=== PATIENT | female | born 1975 | race Two or more races ===

== ENCOUNTER → 2018-01-30 | Outpatient (CLI) | END | disposition home or self-care (01) ==

== ENCOUNTER 2018-03-09 07:04 | Emergency (ER) | END 2018-03-09 08:22 | disposition home or self-care (01) ==

== ENCOUNTER 2018-10-12 16:36 | Emergency (ER) | END 2018-10-12 18:06 | disposition home or self-care (01) ==

== ENCOUNTER 2019-01-14 05:57 | Day surgery (SDC) | payer BC ==
[~2019-01-14] VITALS: Ht 157.5 cm; Wt 56.7 kg
[2019-01-14] VITALS (12 sets, daily range): BP systolic 99–153; BP diastolic 65–78; PULSE 58–82; RESP 14–25; Ht 157.5 cm; Wt 56.7 kg
[~2019-01-14 05:57] MED LIST: MINE3.5O30 RIGHT EYE; NAPR-985 PO
[2019-01-14] MEDS ORDERED: SOD CHLORIDE 0.9% 1,000 ML IV SCH (06:00)
[2019-01-14] MEDS ORDERED: CEFAZOLIN 2 GM/50 ML (PMX) 50 ML IVPB ONE (06:00)
[2019-01-14] MEDS ORDERED: BUPIVACAINE 0.5%/EPI (SDV) 30 ML INJ ONE (07:03)
--- NOTE | 2019-01-14 07:24 | PREAC ---
Date/Time of Note Date/Time of Note DATE: 01/14/19 TIME: 07:23 Anesthesia Eval and Record Evaluation Time Pre-Procedure Interview DATE: 01/14/19 TIME: 07:23 Age 44 Sex female NPO: 8 hrs Preoperative diagnosis Gallstones Planned procedure Lap Marsha Past Medical History Past Medical History: Includes Cardio: Dyslipidemia Surgery & Anesthesia Issues No known issue Meds Anticoagulation: No Beta Vickie within 24 hr: No Reason Beta Vickie not given: Pt. not on B-Vickie Discontinued Scripts Mineral Oil/Petrolatum,White (ARTIFICIAL TEARS EYE OINT) 3.5 Gm Oint...g., 1 APPLIC RIGHT EYE NEEDED PRN for DRY EYES for 10 Days, #1 EA Prov:GONSALO GRAHAM MD 10/12/18 Naproxen* (Naprosyn*) 500 Mg Tablet, 500 MG PO BID PRN for PAIN AND/OR INFLAMMATION, #30 TAB Prov:DAPHNE JORGENSEN PA-C 03/09/18 Current Medications Sodium Chloride 1,000 ml @ 75 mls/hr [id number] IV Last administered on 01/14/19at 06:39; Admin Dose 75 MLS/HR; Start 01/14/19 at 06:00; Stop 01/14/19 at 19:19 Meds reviewed: Yes Allergies Coded Allergies: No Known Allergy (Unverified , 01/14/19) Allergies Reviewed: Yes Labs/Studies Labs Reviewed: Reviewed by anesthesiologist test: Negative Pre-procedure Exam Last vitals Vital Signs Date Temp Pulse Resp B/P (MAP) Pulse Ox O2 O2 Flow FiO2 Time Delivery Rate 01/14/19 97.5 78 18 99/68 (78) 99 Room Air 06:32 Airway: Adequate mouth opening, Adequate thyromental dist Mallampati: Mallampati II Teeth: Normal Lung: Normal Heart: Normal ASA Physical Status ASA physical status: 2 Emergency: None Planned Anesthetic General/MAC: ETT Nerve block: TAP (bilateral) Pre-operative Attestations Prior to commencing anesthesia and surgery, the patient was re-evaluated, there was verification of: *The patient's identity *The results of appropriate recent lab work and preoperative vital signs *The above evaluation not changing prior to induction *Anesthetic plan, risk benefits, alternative and complications discussed with patient/family; questions answered; patient/family understands, accepts and wishes to proceed. CHELE SAMANO Jan 14, 2019 07:24
[2019-01-14] MEDS ORDERED: ONDANSETRON 4 MG INJ IV PRN ×2 (07:30→09:30)
[2019-01-14] MEDS ORDERED: FENTAnyl 50 MCG/ML VIAL IV PRN ×2 (07:30)
[2019-01-14] MEDS ORDERED: ALBUTEROL 0.083% (NEB) 2.5 MG/3 ML AMP HHN PRN (07:30)
[2019-01-14] MEDS ORDERED: DIPHENHYDRAMINE 50 MG INJ IV PRN (07:30)
[2019-01-14] MEDS ORDERED: HYDROmorphONE 1 MG/5 ML IV SYRINGE IV PRN ×3 (07:30)
[2019-01-14] MEDS ORDERED: MEPERIDINE 25 MG INJ IV PRN (07:30)
[2019-01-14] MEDS ORDERED: METOCLOPRAMIDE 10 MG INJ IV PRN (07:30)
[2019-01-14] MEDS ORDERED: FENTAnyl 50 MCG/ML VIAL ONE (07:44)
[2019-01-14] MEDS ORDERED: ROPIVACAINE 0.5 % 30 ML VIAL ONE (07:45)
[2019-01-14] MEDS ORDERED: NEOSTIGMINE 10 MG INJ ONE (08:07)
[2019-01-14] MEDS ORDERED: GLYCOPYRROLATE 0.4 MG INJ ONE (08:07)
[2019-01-14] MEDS ORDERED: PROPOFOL 20 ML ONE (08:07)
[2019-01-14] MEDS ORDERED: ROCURONIUM 50 MG INJ ONE (08:07)
[2019-01-14] MEDS ORDERED: SUCCINYLCHOLINE CHLORIDE 100 MG/5 ML SYG IV ONE (08:07)
[2019-01-14] MEDS ORDERED: LIDOCAINE 100 MG SYRINGE ONE (08:07)
[2019-01-14] MEDS ORDERED: CEFAZOLIN 1 GM INJ ONE (08:07)
--- NOTE | 2019-01-14 09:18 | OPR ---
Date/Time of Note Date/Time of Note DATE: 01/14/19 TIME: 09:14 Operative Report Procedure Date: Jan 14, 2019 Preoperative Diagnosis Cholelithiasis/chronic cholecystitis Postoperative Diagnosis Cholelithiasis/chronic cholecystitis Operation/Procedure Performed Laparoscopic cholecystectomy Surgeon see signature line Physical Trainer None Anesthesia Type: general Anesthesiologist: CHELE SAMANO Estimated Blood Loss: minimal Transfusion none Specimen Gallbladder Grafts/Implants none Complications none Pt Condition Post Procedure: stable Disposition: PACU Indications The patient is a 44-year-old female who presented to the office with an 8-month history of intermittent right upper quadrant abdominal pain. The patient had clinical signs and symptoms of chronic cholecystitis and biliary colic which was confirmed via an ultrasound which showed evidence of gallstones. The patient was scheduled for laparoscopic cholecystectomy; possible open as definitive treatment to prevent further sequelae of gallstone disease which include but are not limited to: Gangrenous cholecystitis, choledocholithiasis, gallstone pancreatitis, ascending cholangitis, etc. All risks and benefits of the procedure including but not limited to: Wound infection, excessive bleeding, common bile duct injury, postoperative biliary leak, retained common bile duct stone, injury to intra-abdominal organs, conversion to open procedure, possible need for subsequent surgeries, etc. were all explained to the patient in full detail. She fully understood and wished to proceed with the procedure. Informed consent was therefore obtained. Procedure Description The patient was brought to the operating room and placed supine on the operating table. Bilateral sequential compression devices were placed on both lower extremities. A dose of broad-spectrum perioperative intravenous antibiotics was given. After the induction of smooth general endotracheal anesthesia the patient's abdomen was prepped and draped in the standard surgical fashion. A tap block was performed by the anesthesiologist and will be documented by him separately. After performance of the surgical timeout a 5 mm incision was made in the inferior umbilicus and a Veress needle was used to access the intra- abdominal cavity atraumatically. Pneumoperitoneum was then obtained and the Veress needle was exchanged for a 5 mm trocar through which a 5 mm laparoscope was placed. Three further working ports were then placed a 12 mm port in the sub-xiphoid region and two 5 mm ports in the right upper quadrant. All port sites were anesthetized with 0.25% Marcaine with epinephrine prior to incision. Using atraumatic graspers the gallbladder was grasped and retracted superiorly and laterally exposing the area of Davis's pouch. There was adhesions of the omentum to the anterior surface of the gallbladder. These were taken down using a combination of blunt dissection and hook electrocautery. Dissection was then begun in the area of the cystic ducts structures using a combination of blunt dissection and hook electrocautery. The cystic duct was identified as it entered straight into the neck of the gallbladder. It was dissected free of surrounding tissues and clipped proximally and distally x 3 and transected using EndoShears. Dissection was then continued posteriorly. The cystic artery was identified and dissected free of surrounding tissues. It too was clipped proximally and distally x 3 and transected using EndoShears. The gallbladder was then dissected off the liver bed using electrocautery. There was some chronic scarring of the posterior surface of the gallbladder to the liver bed. Once completely free the gallbladder was placed in an Endo Catch bag and withdrawn through the subxiphoid port site and passed off the field as specimen. The subxiphoid port site had to be enlarged to accommodate the large stones within the gallbladder. Hemostasis was then inspected for and noted to be total. The abdomen was then irrigated with several liters of warm normal saline and the irrigant returned crystal clear. Pneumoperitoneum was then released and all trochars were withdrawn under direct vision. The fascia of the subxiphoid port site was reapproximated using 0 Vicryl sutures in running fashion. The subcutaneous tissues were irrigated with more warm normal saline. The skin was then reapproximated using 4-0 Monocryl sutures in subcuticular fashion. The incisions were cleaned and Dermabond was applied to the incisions and the patient was awoken from anesthesia and transported to the recovery room in stable condition. All counts were correct at the end of the case x 2. ELVIN HAAS MD Jan 14, 2019 09:18
[2019-01-14] MEDS ORDERED: HYDROCODONE/APAP (5/325) TAB PO PRN ×2 (09:30)
[2019-01-14] MEDS ORDERED: KETOROLAC 30 MG INJ IV PRN ×2 (09:30)
[2019-01-14] MEDS ORDERED: IBUPROFEN 600 MG TAB PO PRN (09:30)
[2019-01-14] MEDS ORDERED: morphine 2 MG INJ IV PRN (09:30)
--- NOTE | 2019-01-14 19:04 | PAC ---
Date/Time of Note Date/Time of Note DATE: 01/14/19 TIME: 19:04 Post-Anesthesia Notes Post-Anesthesia Note Last documented vital signs Vital Signs Date Temp Pulse Resp B/P (MAP) Pulse Ox O2 O2 Flow FiO2 Time Delivery Rate 01/14/19 97.3 61 16 153/75 100 11:01 (101) 01/14/19 Room Air 10:04 01/14/19 2.0 09:34 Activity: WNL Respiratory function: WNL Cardiovascular function: WNL Mental status: Baseline Pain reasonably controlled: Yes Hydration appropriate: Yes Nausea/Vomiting absent: Yes CHELE SAMANO Jan 14, 2019 19:04
== END 2019-01-14 12:00 | disposition home or self-care (01) ==
LOC: SDS 05:57
PROVIDERS: ATTEND Surgery
DX: K80.10 Calculus of gallbladder with chronic cholecystitis without obstruction (principal)
CPT/HCPCS: 47562; 88304; J0690; J1170; J1885; J2001; J2405; J2710; J2795; J3010; Z7512; Z7610